=== PATIENT | male | born 1945 | race Caucasian/White ===

== ENCOUNTER 2016-08-15 07:43 | Day surgery (SDC) | payer MEDICARE, OTHER ==
--- NOTE | ~2016-08-15 | EGD ---
EGD REPORT [place] [address] [place] [address] NAME: BRIDGER CAMERON : [birth year] STATUS : REG [facility]#: [id number] AGE: 70 ADM/REG DATE : 08/15/16 MR#: [id number] REPORT SERV DATE: 08/15/16 DICTATED BY: MEJIA LÓPEZ DATE: 08/15/16 REPORT STATUS : Draft [facility]ANS[facility]IBED BY: [facility] DATE: 08/15/16 [facility] Patient Name: Bridger Cameron Date of : 1945 Attending MD: MEJIA LÓPEZ MD Procedure Date No Time: 08/15/2016 Procedure: Colonoscopy Indications: Personal history of colonic polyps, Change in bowel habits Referring MD: ZEINAB MORTON JR. Medicines: Monitored Anesthesia Care Complications: No immediate complications. Procedure: Pre-Anesthesia Assessment: - ASA Grade Assessment: II - A patient with mild systemic disease. After I obtained informed consent, the scope was passed under direct vision. Throughout the procedure, the patient's blood pressure, pulse, and oxygen saturations were monitored continuously. The CF [id number] was introduced through the anus and advanced to the terminal ileum, with identification of the appendiceal orifice and IC valve. The colonoscopy was performed without difficulty. The patient tolerated the procedure well. The quality of the bowel preparation was good. Findings: The digital rectal exam was normal. Pertinent negatives include no palpable rectal lesions. The terminal ileum appeared normal. Multiple diverticula were found in the sigmoid colon. A sessile polyp was found in the ascending colon. The polyp was 4 mm in size. The polyp was removed with a cold biopsy forceps. Resection and retrieval were complete. Hemorrhoids were found during retroflexion and were moderate. Impression: - The examined portion of the ileum was normal. - Diverticulosis in the sigmoid colon. - One 4 mm polyp in the ascending colon. Resected and retrieved. - Hemorrhoids. Recommendation: - Patient has a contact number available for emergencies. The signs and symptoms of potential delayed complications were discussed with the patient. Return to normal activities tomorrow. Written discharge EGD REPORT [address] [address] NAME: BRIDGER CAMERON : [birth year] STATUS : REG [facility]#: [id number] AGE: 70 ADM/REG DATE : 08/15/16 MR#: [id number] REPORT SERV DATE: 08/15/16 DICTATED BY: MEJIA LÓPEZ DATE: 08/15/16 REPORT STATUS : Draft TRANSCRIBED BY: [employer] DATE: 08/15/16 instructions were provided to the patient. - Regular diet. - Continue present medications. - Repeat colonoscopy in 3 - 5 years for surveillance based on pathology results. - Return to GI clinic PRN. - Use Benefiber one teaspoon PO TID. Procedure Code(s): --- Professional --- 08120, Colonoscopy, flexible, proximal to splenic flexure; with biopsy, single or multiple Diagnosis Code(s): --- Professional --- K64.9, Unspecified hemorrhoids K57.30, Diverticulosis of large intestine without perforation or abscess without bleeding D12.2, Benign neoplasm of ascending colon Z86.010, Personal history of colonic polyps R19.4, Change in bowel habit CPT copyright 2013 [employer]. All rights reserved. The codes documented in this report are preliminary and upon metal punch press operator review may be revised to meet current compliance requirements. MEJIA LÓPEZ MD 08/15/2016 9:30 AM This report has been signed electronically. Number of Addenda: 0 Note Initiated On: 08/15/2016 9:01 AM Scope Withdrawal Time 0 hours 6 minutes 54 seconds [id number] [id number]
[~2016-08-15 07:43] MED LIST: ASAB PO; FISH-EPA1000 MG PO; FLUOROURACIL TOP; LEVOTHROID50 MCG PO; LEVOTHYROXIN75 MCG; PRAVAC PO; RED YEAS1; TEARS PURE OPH; THERA TEARS OPH
== END 2016-08-15 23:59 | disposition home or self-care (01) ==
LOC: DMU 07:43
PROVIDERS: Internal Medicine Gastroenterology
PROC: 0DBK8ZX Excision of Ascending Colon, Via Natural or Artificial Opening Endoscopic, Diagnostic (ICD-10-PCS; principal; 2016-08-15 09:00)
DX: D12.2 Benign neoplasm of ascending colon (principal); K64.9 Unspecified hemorrhoids; K57.30 Diverticulosis of large intestine without perforation or abscess without bleeding; E78.5 Hyperlipidemia, unspecified; I45.10 Unspecified right bundle-branch block; E03.9 Hypothyroidism, unspecified; G43.909 Migraine, unspecified, not intractable, without status migrainosus; E78.00 Pure hypercholesterolemia, unspecified; M19.90 Unspecified osteoarthritis, unspecified site; N40.0 Benign prostatic hyperplasia without lower urinary tract symptoms; Z86.010 Personal history of colon polyps; Z88.2 Allergy status to sulfonamides; Z79.82 Long term (current) use of aspirin; Z79.899 Other long term (current) drug therapy; Z90.89 Acquired absence of other organs; Z98.890 Other specified postprocedural states; Z90.49 Acquired absence of other specified parts of digestive tract
CPT/HCPCS: 88305